=== PATIENT | female | born 1945 | race Caucasian/White ===

== ENCOUNTER 2022-01-01 09:30 | Outpatient (RCR) | payer MEDICARE, BC, SELFPAY | END 2022-12-26 23:59 | disposition home or self-care (01) | PROVIDERS: PCP Nurse Practitioner Family; Visit Provider Nurse Practitioner Family | DX: I89.0 Lymphedema, not elsewhere classified (principal) | CPT/HCPCS: 97530; 97535 ==

== ENCOUNTER 2023-12-31 20:01 | Outpatient (CLI) | payer MEDICARE, BC, SELFPAY | END 2023-12-31 20:02 | disposition home or self-care (01) | LOC: SLEEP 20:03 | PROVIDERS: PCP Nurse Practitioner Family; Visit Provider Internal Medicine | DX: G47.33 Obstructive sleep apnea (adult) (pediatric) (principal); R09.02 Hypoxemia | CPT/HCPCS: 95811 ==